=== PATIENT | male | born 1980 | race Caucasian/White ===

== ENCOUNTER 2017-05-06 05:33 | Emergency (ER) | payer BC ==
[~2017-05-06] VITALS: Ht 180.3 cm; Wt 104.3 kg
[2017-05-06] MEDS ORDERED: CIPRODEX OTIC7.5 ML OTIC (05:52)
[2017-05-06] MEDS ORDERED: IBUPROFEN 600600 M1 PO (05:52)
[2017-05-06] MEDS ORDERED: NORCO 5-325 TA1 EACH PO (05:52)
[2017-05-06] MEDS ORDERED: PROZAC20 MG PO (05:57)
[2017-05-06] MEDS ORDERED: CLARITIN10 MG PO (05:58)
== END 2017-05-06 06:14 | disposition home or self-care (01) ==
LOC: ER 05:33
DX: H60.92 Unspecified otitis externa, left ear (principal)